=== PATIENT | female | born 1985 | race Caucasian/White ===

== ENCOUNTER 2023-10-23 12:29 | Emergency (ER) | payer SELFPAY ==
[2023-10-23 14:48] LABS: BASOPHILS ABSOLUTE AUTO 0.1 K/mm3 (0.0-0.2); BASOPHILS PERCENT AUTO 0.4 % (0.0-1.0); EOSINOPHILS PERCENT AUTO 0.3 % (0.0-6.0); HEMATOCRIT 41.8 % (37.0-47.0); HEMOGLOBIN 14.2 gm/dl (12.0-16.0); IMMATURE GRAN ABSOLUTE AUTO 0.07 K/mm3 (0.00-0.05); IMMATURE GRAN PERCENT AUTO 0.6 % (0.0-0.4); LYMPHOCYTES ABSOLUTE AUTO 2.9 K/mm3 (1.0-4.8); LYMPHOCYTES PERCENT AUTO 25.5 % (24.0-44.0); MEAN CORPUSCULAR HEMOGLOBIN 28.3 pg (28.0-32.0); MEAN CORPUSCULAR VOLUME 83.3 fl (83.0-99.0); MEAN PLATELET VOLUME 10.3 fl (9.4-12.3); MONOCYTES PERCENT AUTO 8.7 % (0.0-8.0); NEUTROPHILS ABSOLUTE AUTO 7.3 K/mm3 (1.8-7.7); NEUTROPHILS PERCENT AUTO 64.5 % (41.0-71.0); PLATELET COUNT,PLT 346 K/mm3 (150-400); RED BLOOD CELL COUNT 5.02 M/mm3 (4.10-5.30); WHITE BLOOD CELL COUNT,WBC 11.35 K/mm3 (3.9-11.3)
[2023-10-23] MEDS: LORazepam 1 MG Tab PO ONE (14:56)
[2023-10-23] MEDS: Ondansetron 4 MG Tab.DIS PO ONE (14:56)
[2023-10-23 15:03] LABS: BARBITURATE SCREEN,URINE NEGATIVE (CUTOFF=200); BENZODIAZEPINES SCREEN,URINE NEGATIVE (CUTOFF=150); BUPRENORPHINE SCREEN,URINE NEGATIVE (CUTOFF=10); METHADONE SCREEN, URINE NEGATIVE (CUTOFF=200); METHAMPHETAMINES SCREEN, URINE PRESUMPTIVE POSITIVE (CUTOFF=500); OXYCODONE SCREEN,URINE NEGATIVE (CUT0FF=100); THC SCREEN,URINE 20 NG/ML NEGATIVE (CUTOFF=50)
[2023-10-23 15:04] LABS: AMPHETAMINES SCREEN, URINE PRESUMPTIVE POSITIVE (CUTOFF=500)
[2023-10-23 15:10] LABS: ALANINE AMINOTRANSFERASE,ALT 16 U/L (14-59); ALBUMIN 3.8 g/dl (3.4-5.0); ALKALINE PHOSPHATASE 74 U/L (46-116); ANION GAP 13.4 (5-15); ASPARTATE AMNIOTRANSFERASE,AST 12 U/L (15-37); BILIRUBIN TOTAL 0.6 mg/dL (0.2-1.0); BLOOD UREA NITROGEN,BUN 14 mg/dL (7-18); BUN/CREATININE RATIO 17.5 (14-18); CALCIUM 8.9 mg/dL (8.5-10.1); CARBON DIOXIDE,CO2 26 mEq/L (21-32); CHLORIDE,CL 100 mEq/L (98-107); CREATININE 0.8 mg/dL (0.55-1.02); EST CRCL DRUG DOSING (CG) 76.89 mL/min; ESTIMATED GFR 98 mL/min (>60); GLUCOSE RANDOM 92 mg/dL (70-99); POTASSIUM,K 3.4 mEq/L (3.5-5.1); PROTEIN TOTAL,TP 7.8 g/dl (6.4-8.2); SODIUM,NA 136 mEq/L (136-145)
[2023-10-23 15:13] LABS: C-REACTIVE PROTEIN < 0.05 mg/dL (<0.30)
[2023-10-23 15:22] LABS: HCG QUALITATIVE,SERUM NEGATIVE (NEGATIVE)
[2023-10-23 15:23] LABS: HEPATITIS C AB NON-REACTIVE (Non-React)
[2023-10-23] MEDS: cloNIDine 0.1 MG Tab PO ONE (18:15)
== END 2023-10-23 18:20 ==
LOC: JD.ED 12:29
DX: F15.20 Other stimulant dependence, uncomplicated (principal); F11.20 Opioid dependence, uncomplicated; Z91.040 Latex allergy status
CPT/HCPCS: 36415; 80053; 80306; 84703; 85025; 86140; 86803; 99284; A9270; 99283